=== PATIENT | male | born 1960 | race Two or more races ===

== ENCOUNTER 2017-08-25 16:42 | Emergency (ER) | payer OTHER | END 2017-08-25 18:34 | disposition home or self-care (01) | LOC: E/R 18:34 | DX: R04.0 Epistaxis (principal) | CPT/HCPCS: 99283; Z7502 ==

== ENCOUNTER → 2017-10-08 | Outpatient (CLI) | payer OTHER | END | disposition home or self-care (01) | LOC: HKI 11:11 | DX: M17.0 Bilateral primary osteoarthritis of knee (principal) | CPT/HCPCS: Z7500 ==

== ENCOUNTER → 2018-01-24 | Outpatient (CLI) | payer OTHER | END | disposition home or self-care (01) | LOC: HKI 13:03 | DX: Z01.818 Encounter for other preprocedural examination (principal) | CPT/HCPCS: Z7500 ==

== ENCOUNTER 2018-01-25 07:46 | Inpatient (IN) | payer OTHER ==
[2018-01-25] MEDS: ACETAMINOPHEN 1000MG/100ML IV 100 ML IVPB (07:30)
[2018-01-25] MEDS: CEFAZOLIN 2 GM/50 ML (PMX) 50 ML IVPB (07:30)
[2018-01-25] MEDS: TRANEXAMIC ACID 1,000 MG in NS 100 ML PRE-OP X1 IVPB (07:30)
[2018-01-25] MEDS: LACTATED RINGER'S 1,000 ML IV* (07:30)
[2018-01-25] MEDS: TRANEXAMIC ACID 1,000 MG in NS 100 ML INTRA-OP X1 IVPB (07:30)
[2018-01-25] MEDS: ONDANSETRON 4 MG INJ IV ×4 (07:30→21:28)
[2018-01-25] MEDS: oxyCODONE (CR) 10 MG TAB [oxyCONTIN] PO (07:30)
[2018-01-25] MEDS: LANSOPRAZOLE 30 MG CAP PO (07:30)
[~2018-01-25 07:46] MED LIST: LIDOCAINE 2% (SDV) 5 ML INJ; ROCURONIUM 50 MG INJ
[2018-01-25] MEDS: DEXAMETHASONE 4 MG/ML 1 ML INJ IV (08:56)
[2018-01-25] MEDS ORDERED: BUPIVACAINE 0.75%/DEXT (SPINAL) 2 ML INJ (09:00)
[2018-01-25] MEDS ORDERED: BETHANECHOL 25 MG TAB PO (09:00)
[2018-01-25] MEDS: GABAPENTIN 100 MG CAP PO (09:00)
[2018-01-25] MEDS ORDERED: NA PHOSPHATE/BIPHOS 133 ML ENEMA PR (09:00)
[2018-01-25] MEDS ORDERED: KETOROLAC 15 MG INJ IV (09:00)
[2018-01-25] MEDS: ASPIRIN (EC) 325 MG TAB PO ×3 (09:00→21:27)
[2018-01-25] MEDS ORDERED: BISACODYL 10 MG SUPP PR (09:00)
[2018-01-25] MEDS ORDERED: MAGNESIUM HYDROXIDE 30ML CUP PO (09:00)
[2018-01-25] MEDS ORDERED: NALOXONE (0.4 MG/ML) INJ IV ×2 (09:00→11:30)
[2018-01-25] MEDS ORDERED: morphine SULFATE/PF (10 MG/10 ML) INJ (09:00)
[2018-01-25] MEDS ORDERED: SENNA/DOCUSATE NA (8.6MG/50MG) TAB PO (09:00)
[2018-01-25] MEDS ORDERED: EPINEPHrine 1 MG INJ (09:01)
[2018-01-25] MEDS ORDERED: MIDAZOLAM 1 MG/ML 2 ML INJ (09:03)
[2018-01-25] MEDS ORDERED: ROCURONIUM 50 MG INJ (09:04)
[2018-01-25] MEDS ORDERED: PROPOFOL 20 ML (09:04)
[2018-01-25] MEDS ORDERED: PHENYLephrine (100 MCG/ML) 10ML SYG (09:13)
[2018-01-25] MEDS ORDERED: oxyCODONE 5 MG TAB PO (10:00)
[2018-01-25] MEDS: BACITRACIN 50000 UNITS INJ (10:08)
[2018-01-25] MEDS: POLYMYXIN B 500000 UNIT INJ (10:08)
[2018-01-25] MEDS ORDERED: NEOSTIGMINE 3 MG/3 ML SYRINGE (10:59)
[2018-01-25] MEDS ORDERED: GLYCOPYRROLATE 0.4 MG INJ (10:59)
[2018-01-25] MEDS ORDERED: METOCLOPRAMIDE 10 MG INJ IV (11:30)
[2018-01-25] MEDS ORDERED: HYDROmorphONE 0.5 MG/0.5 ML SYG IV ×2 (11:30)
[2018-01-25] MEDS ORDERED: EPHEDrine SULFATE 50 MG/5 ML SYG IV (11:30)
[2018-01-25] MEDS ORDERED: ALBUTEROL 0.083% (NEB) 2.5 MG/3 ML AMP HHN (11:30)
[2018-01-25] MEDS ORDERED: ONDANSETRON 4 MG INJ IV ×2 (11:30)
[2018-01-25] MEDS ORDERED: LABETALOL HCL 20MG INJ IV (11:30)
[2018-01-25] MEDS ORDERED: OXYCODONE/ACETAMINOPHEN (5/325) TAB PO ×2 (11:30)
[2018-01-25] MEDS ORDERED: HYDROmorphONE 1 MG/5 ML IV SYRINGE IV ×3 (11:30)
[2018-01-25] MEDS ORDERED: hydrALAzine 20 MG INJ IV (11:30)
[2018-01-25] MEDS ORDERED: MEPERIDINE 25 MG INJ IV (11:30)
[2018-01-25] MEDS ORDERED: DIPHENHYDRAMINE 50 MG INJ IV ×2 (11:30)
[2018-01-25] MEDS ORDERED: KETOROLAC 30 MG INJ IV ×2 (11:30)
[2018-01-25] MEDS: CEFAZOLIN 1 GM/50 ML (PMX) 50 ML IVPB ×2 (12:02→21:27)
[2018-01-25] MEDS: DOCUSATE SODIUM 100 MG CAP PO (12:02)
[2018-01-25] MEDS: SOD CHLORIDE 0.9% 1,000 ML IV ×2 (14:30→22:20)
[2018-01-25] MEDS: KNEE PAIN COCKTAIL (CEFUROXIME) INJ (19:10)
[2018-01-25] MEDS: DIPHENHYDRAMINE 50 MG INJ IV (22:26)
[2018-01-26] MEDS: ONDANSETRON 4 MG INJ IV (04:00)
[2018-01-26 05:02] LABS: ADD MAN DIFF? NO
[2018-01-26 05:10] LABS: HEMATOCRIT 39.2 % (42.0-52.0); HEMOGLOBIN 12.8 g/dl (14.0-18.0); MEAN CORPUSCULAR HEMOGLOBIN 33.6 pg (29.0-33.0); MEAN CORPUSCULAR HGB CONC 32.7 g/dl (32.0-37.0); MEAN CORPUSCULAR VOLUME 102.9 fl (82.0-101.0); RED BLOOD COUNT 3.81 10^6/ul (4.70-6.10)
[2018-01-26 05:11] LABS: ABNORMAL IP MESSAGE 1; BASOPHILS % 0.2 % (0.0-2.0); LYMPHOCYTES # 0.4 10^3/ul (0.8-2.9); MEAN PLATELET VOLUME 12.9 fl (7.4-10.4); MONOCYTE # 0.4 10^3/ul (0.3-0.9); MONOCYTES % 7.1 % (0.0-11.0); NEUTROPHIL # 5.2 10^3/ul (1.6-7.5); NEUTROPHILS % 85.4 % (39.0-77.0); PLATELET COUNT 72 10^3/UL (140-415); POSITIVE DIFF @See below; RED CELL DISTRIBUTION WIDTH 13.6 % (11.5-14.5)
[2018-01-26] MEDS: CEFAZOLIN 1 GM/50 ML (PMX) 50 ML IVPB (05:24)
[2018-01-26 05:41] LABS: ANION GAP 11 (8-16); BLOOD UREA NITROGEN 16 mg/dl (7-20); CALCIUM 7.8 mg/dl (8.4-10.2); CARBON DIOXIDE 26 mmol/L (21-31); CHLORIDE 107 mmol/L (97-110); CREATININE 0.93 mg/dl (0.61-1.24); GLUCOSE 124 mg/dl (70-220); POTASSIUM 5.1 mmol/L (3.5-5.1); SODIUM 139 mmol/L (135-144)
[2018-01-26 05:44] LABS: MAGNESIUM 1.7 mg/dl (1.7-2.5)
[2018-01-26 07:48] LABS: ADD UMIC YES; UR ASCORBIC ACID NEGATIVE (NEGATIVE); UR BACTERIA FEW /HPF (NONE SEEN); UR BILIRUBIN (Dip) NEGATIVE (NEGATIVE); UR BLOOD (Dip) 2+ mg/dL (NEGATIVE); UR CLARITY SLIGHTLY CLOUDY (CLEAR); UR COLOR AMBER (YELLOW); UR GLUCOSE (Dip) NEGATIVE (NEGATIVE); UR KETONES (Dip) NEGATIVE (NEGATIVE); UR LEUKOCYTE ESTERASE (Dip) NEGATIVE Leu/ul (NEGATIVE); UR MUCUS FEW /HPF (NONE SEEN); UR NITRITE (Dip) NEGATIVE (NEGATIVE); UR RBC 71 /HPF (0-5); UR SPECIFIC GRAVITY (Dip) 1.027 (1.003-1.030); UR TOTAL PROTEIN (Dip) 2+ mg/dl (NEGATIVE); UR UROBILINOGEN (Dip) NEGATIVE (NEGATIVE); UR WBC 9 /HPF (0-5)
[2018-01-26] MEDS: CELECOXIB 200 MG CAP PO ×2 (09:16→21:18)
[2018-01-26] MEDS: ASPIRIN (EC) 325 MG TAB PO ×2 (09:16→21:19)
[2018-01-26] MEDS: DOCUSATE SODIUM 100 MG CAP PO ×2 (09:16→21:18)
[2018-01-26] MEDS: oxyCODONE 5 MG TAB PO ×4 (09:17→21:19)
[2018-01-26] MEDS: GABAPENTIN 100 MG CAP PO ×2 (09:17→21:18)
[2018-01-26] MEDS: FERROUS FUMARATE (SR) TAB PO ×2 (09:17→21:18)
[2018-01-26] MEDS: SOD CHLORIDE 0.9% 1,000 ML IV (09:20)
[2018-01-27] MEDS: oxyCODONE 5 MG TAB PO ×2 (04:35→13:37)
[2018-01-27] MEDS: PANTOPRAZOLE (EC) 40 MG TAB PO (05:33)
[2018-01-27 06:10] LABS: ADD MAN DIFF? NO
[2018-01-27 06:15] LABS: ABNORMAL IP MESSAGE 1; BASOPHILS % 0.4 % (0.0-2.0); EOSINOPHILS % 0.4 % (0.0-7.0); HEMATOCRIT 36.3 % (42.0-52.0); LYMPHOCYTES # 0.9 10^3/ul (0.8-2.9); LYMPHOCYTES % 18.9 % (15.0-51.0); MEAN CORPUSCULAR HEMOGLOBIN 33.6 pg (29.0-33.0); MEAN CORPUSCULAR HGB CONC 33.1 g/dl (32.0-37.0); MEAN CORPUSCULAR VOLUME 101.7 fl (82.0-101.0); MEAN PLATELET VOLUME 13.1 fl (7.4-10.4); MONOCYTE # 0.5 10^3/ul (0.3-0.9); MONOCYTES % 9.8 % (0.0-11.0); NEUTROPHIL # 3.5 10^3/ul (1.6-7.5); NEUTROPHILS % 70.1 % (39.0-77.0); POSITIVE DIFF @See below; RED BLOOD COUNT 3.57 10^6/ul (4.70-6.10); RED CELL DISTRIBUTION WIDTH 13.4 % (11.5-14.5)
[2018-01-27 06:49] LABS: PLATELET COUNT 53 10^3/UL (140-415)
[2018-01-27 06:56] LABS: ANION GAP 10 (8-16); BLOOD UREA NITROGEN 15 mg/dl (7-20); CARBON DIOXIDE 28 mmol/L (21-31); CHLORIDE 105 mmol/L (97-110); CREATININE 0.57 mg/dl (0.61-1.24); GLUCOSE 110 mg/dl (70-220); POTASSIUM 4.3 mmol/L (3.5-5.1); SODIUM 139 mmol/L (135-144)
[2018-01-27] MEDS: ASPIRIN (EC) 325 MG TAB PO (09:00)
[2018-01-27] MEDS: CELECOXIB 200 MG CAP PO (09:00)
[2018-01-27] MEDS: FERROUS FUMARATE (SR) TAB PO (09:58)
[2018-01-27] MEDS: DOCUSATE SODIUM 100 MG CAP PO (09:58)
[2018-01-27] MEDS: GABAPENTIN 100 MG CAP PO (09:58)
== END 2018-01-27 15:30 | disposition home health service (06) | DRG 470 ==
LOC: REC 07:46 → MS1 13:00
PROC: 0SRD069 Replacement of Left Knee Joint with Oxidized Zirconium on Polyethylene Synthetic Substitute, Cemented, Open Approach (ICD-10-PCS; principal; 2018-01-25 09:06)
DX: M17.12 Unilateral primary osteoarthritis, left knee (principal); I10 Essential (primary) hypertension
CPT/HCPCS: 73560; 80048; 81001; 83735; 84100; 85025; 86850; 86900; 86901; 86920; 87086; 88304; 88311; 97110; 97116; 97162; 97530

== ENCOUNTER 2018-02-08 15:05 | Emergency (ER) | payer OTHER | END 2018-02-08 18:11 | disposition home or self-care (01) | LOC: FTE 15:05 | DX: R60.0 Localized edema (principal); I10 Essential (primary) hypertension; E66.9 Obesity, unspecified; Z68.30 Body mass index [BMI] 30.0-30.9, adult; Z96.651 Presence of right artificial knee joint | CPT/HCPCS: 93971; 99284-25 ==

== ENCOUNTER → 2018-02-08 | Outpatient (CLI) | payer OTHER | END | disposition home or self-care (01) | LOC: HKI 13:54 | DX: Z47.1 Aftercare following joint replacement surgery (principal); Z96.652 Presence of left artificial knee joint | CPT/HCPCS: 73562; 73562-LT ==

== ENCOUNTER → 2018-03-11 | Outpatient (CLI) | payer OTHER | END | disposition home or self-care (01) | LOC: HKI 09:53 | DX: Z47.1 Aftercare following joint replacement surgery (principal); Z96.652 Presence of left artificial knee joint | CPT/HCPCS: 73562; 73562-LT ==

== ENCOUNTER → 2018-08-13 | Outpatient (CLI) | payer OTHER | END | disposition home or self-care (01) | LOC: HKI 15:03 | DX: Z09 Encounter for follow-up examination after completed treatment for conditions other than malignant neoplasm (principal); Z96.652 Presence of left artificial knee joint | CPT/HCPCS: 73562; 73562-LT ==